=== PATIENT | male | born 1985 | race Caucasian/White ===

== ENCOUNTER 2016-05-30 01:32 | Emergency (ER) | payer MEDICAID ==
[2014-09-21 06:55] VITALS: BMI 20.1
[~2016-05-30 01:32] MED LIST: HYDROCODONE-APA1 TAB PO
== END 2016-05-30 02:40 | disposition home or self-care (01) ==
LOC: D.ER 01:32
DX: R07.9 Chest pain, unspecified (principal); K21.9 Gastro-esophageal reflux disease without esophagitis; F17.200 Nicotine dependence, unspecified, uncomplicated; I45.10 Unspecified right bundle-branch block

== ENCOUNTER → 2016-07-07 19:47 | Outpatient (CLI) | payer MEDICAID ==
[2014-09-21 06:55] VITALS: BMI 20.1
== END | disposition home or self-care (01) ==
LOC: D.SLEEP 06-26 20:00
DX: G47.33 Obstructive sleep apnea (adult) (pediatric) (principal)